=== PATIENT | female | born 1990 | race Caucasian/White ===

== ENCOUNTER 2017-05-07 01:15 | Emergency (ER) | payer OTHER ==
[~2017-05-07] VITALS: Ht 170.2 cm; Wt 90.8 kg
[~2017-05-07 01:15] MED LIST: EXCEDRIN MIGRA1 EAC3 PO; NO HOME MEDS; TYLENOL WITH C1 EACH PO
[2017-05-07] MEDS ORDERED: CORTISPORI200 DROPS/ RIGHT EAR (01:59)
[2017-05-07 02:38] VITALS: BP 164/88
== END 2017-05-07 02:40 | disposition home or self-care (01) ==
LOC: EXP 01:15 → EME 01:15 → EXP 02:40
PROC: 09C0XZZ Extirpation of Matter from Right External Ear, External Approach (ICD-10-PCS; principal; 2017-05-07)
DX: T16.1XXA Foreign body in right ear, initial encounter (principal)
CPT/HCPCS: 99281; 99283